=== PATIENT | female | born 1950 | race Caucasian/White ===

== ENCOUNTER → 2019-04-13 | Day surgery (SDC) | payer OTHER ==
--- NOTE | 2019-04-08 17:32 | H ---
[facility] [place] [address] HISTORY AND PHYSICAL Name: PB CAMILO Room #: PRE [facility] M.R.#: [id number] Admission: Attend Phys: Johnathan Lynch, Discharge: Date of : 54 Report #: [id number] THIS REPORT FOR: //name// CC: Tara Lynch DATE OF SERVICE: 04/13/2019 DATE OF SCHEDULED SURGERY: 04/13/2019 REASON FOR SURGERY: Postmenopausal bleeding. HISTORY OF PRESENT ILLNESS: This is a 68-year-old who had presented with some recent postmenopausal bleeding. Her previous Pap smear was on 01/31/2019 that was normal. She has had a previous hysteroscopy and D and C and removal of the cervical polyp in 06/2014 and the pathology was benign. She had a previous oophorectomy. She did have a pelvic ultrasound on 02/10/2019. Her uterus measured 5.7 cm in length. Endometrium measured 16.9 mm. Because of her bleeding and obesity, weight of 330 pounds, she did discuss endometrial evaluation, particularly in view of an endometrium measuring almost 17 mm. After discussing options, she has elected to proceed with a hysteroscopy and D and C. The procedure, risks, recovery and alternative options have been discussed with the patient. PAST HISTORY: She had one vaginal delivery as well as 1 . She had a previous oophorectomy as well as a tubal ligation. She does have a history of hypertension and asthma. Otherwise, she has done well. FAMILY HISTORY: Positive for diabetes, hypertension, heart disease and colon cancer. SOCIAL HISTORY: She is and never smoked. ALLERGIES: ERYTHROMYCIN AND CEPHALOSPORINS. CURRENT MEDICATIONS: Advair, hydrochlorothiazide, lisinopril, propranolol. REVIEW OF SYSTEMS: Positive for the postmenopausal bleeding. She denies any fever or chills. No nausea, vomiting. No diarrhea, no dysuria. No chest pain or shortness of breath. PHYSICAL EXAMINATION: VITAL SIGNS: She is 5 feet 1-1/2 with a weight 331 with a BMI of 61, blood pressure 130/82. LUNGS: Clear. HEART: She had a regular rate and rhythm. [facility] [address] [place] [address] HISTORY AND PHYSICAL Name: PB CAMILO Room #: PRE [facility] M.R.#: [id number] Admission: Attend Phys: Johnathan Lynch, Discharge: Date of : 54 Report #: [id number] NECK: Revealed no thyroid nodules or supraclavicular adenopathy. BREASTS: Her breasts were normal bilaterally. ABDOMEN: Soft, nontender. No masses, rebound or guarding. PELVIC: There were no apparent vulvar, vaginal, cervical lesions. Again, a recent Pap was normal. Bimanual is without masses or pain. IMPRESSION: Postmenopausal bleeding with an endometrium of almost 17 mm on ultrasound. After discussing options, the patient elected to proceed with a hysteroscopy and D and C. The procedure, risks and recovery as well as alternative options have been discussed with the patient, <ELECTRONICALLY SIGNED> By: Johnathan Lynch MD 04/08/19 1732 1539 1753 Johnathan Lynch MD /nt
[~2019-04-13] VITALS: Ht 154.9 cm; Wt 149.7 kg
[~2019-04-13] MED LIST: ADVAIR 250-501 EACH INH; BENICAR40 MG PO; CALCIUM 500+D1 EAC2 PO; ERGOCALCIF50000 UNIT PO; FLEXERIL PO; GLUCOSAMINE &1 EAC1 PO; HYDROCHLOROTH12.5 M1 PO; MOBIC15 MG PO; MSM1000 M1 PO; MULTIVITAMINS PO; PRINIVIL20 MG PO; PROPRANOLOL 4040 M1 PO; SERTRALINE HCL50 MG PO; ULTRACET TABLET1 TAB PO; VENTOLIN HFA 1818 GM INH; VITAMIN E400 UNIT PO; ZANAFLEX4 MG PO
[2019-04-13 07:22] LABS: HEMATOCRIT 42.8 % (37.0-47.0)
[2019-04-13 09:51] VITALS: BP 105/86
--- NOTE | 2019-04-13 12:36 | O ---
[facility] [place] [address] OPERATIVE REPORT Name: PB CAMILO Room #: REG [facility].#: [id number] Admission: 04/13/19 Attend Phys: Johnathan Lynch, Discharge: Date of : 54 Report #: [id number] THIS REPORT FOR: //name// CC: Tara Lynch DATE OF SERVICE: 04/13/2019 PREOPERATIVE DIAGNOSIS: Postmenopausal bleeding with endometrial thickening of over 17 mm on pelvic ultrasound. POSTOPERATIVE DIAGNOSIS: Postmenopausal bleeding with endometrial thickening of over 17 mm on pelvic ultrasound with final pathology pending. PROCEDURE DONE: Hysteroscopy, D and C. SURGEON: Johnathan Lynch MD ANESTHESIA: General. COMPLICATIONS: None. BLOOD LOSS: Essentially none. DESCRIPTION OF OPERATION: The patient was taken to the operating room, given adequate anesthesia. She was placed in the stirrups. She was prepped. Her bladder was drained and she was draped. A timeout had been performed. At this point, the patient had been placed in stirrups and then positioned for procedure. The patient was noted to have a rectocele, where a long weighted speculum was placed in the posterior vagina and the anterior bladder and vagina retracted with a retractor. The cervix was quite high in the vaginal vault that was identified and grasped with an Allis clamp. Initially, I was able to do an endocervical curettage. The cervix was gently dilated and the uterus sounded to 7 cm. Cervical os dilated enough to allow a diagnostic hysteroscope to be placed. The hysteroscope was inserted and endometrial cavity visualized. She was found to have endometrial thickening, but no masses identified. The hysteroscope was removed and endometrial curettings were performed. All tissue was sent to pathology. At this point, the Allis clamp was removed from the cervix. There was some slight spotting from the cervix and was treated with silver nitrate and was hemostatic. At this point, the weighted speculum removed, no bleeding. This patient tolerated the procedure well. [address] [address] OPERATIVE REPORT Name: PB CAMILO Room #: REG [facility].#: [id number] Admission: 04/13/19 Attend Phys: Johnathan Lynch, Discharge: Date of : 54 Report #: [id number] instrument count were correct. She was placed back into the supine position and taken to the recovery room in stable condition. <ELECTRONICALLY SIGNED> By: Johnathan Lynch MD 04/13/19 1236 0923 0940 Johnathan Lynch MD /nt
--- NOTE | 2019-04-13 13:24 | EKG ---
[address] [address] ELECTROCARDIOGRAM REPORT Name: PB CAMILO Room #: REG [facility]#: [id number] Admission: 04/13/19 Attend Phys: Johnathan Lynch, Discharge: Date of : 54 Report #: [id number] THIS REPORT FOR: //name// [facility] Test Date: 2019-04-13 Test Time: 07:25:25 Pat Name: PB CAMILO Department: Room: Gender: F Maintenance Welder: LUCERO : 1950 Requested By: Johnathan Lynch Order Number: [id number] MD: Joey Marx Measurements Intervals [place] Rate: 109 P: 45 CT: 147 QRS: 36 QRSD: 86 T: 17 QT: 324 QTc: 437 Interpretive Statements Sinus tachycardia Small inferior Q waves Compared to ECG 12/23/2011 07:20:55 No significant change was found Electronically Signed On 04-13-2019 13:24:06 CDT by Joey Marx [email or web address] <ELECTRONICALLY SIGNED> By: Joey Marx MD, [facility] 04/13/19 1324 0725 4 Joey Marx MD, FACC /EPI
--- NOTE | 2019-04-14 15:08 | PATH ---
[facility] [address] [place] [address] PATHOLOGY RPT PROCEDURE Name: PB CAMILO Room #: [facility] [place].[facility].#: [id number] Admission: 04/13/19 Date of : 54 Discharge: Report #: [id number] Path Case #: [id number] [facility] Accession Number: [id number] . 01 Material submitted: . PART A: endocervix - ENDOCERVICAL CURETTINGS PART B: endometrium - ENDOMETRIAL CURETTINGS . 01 Clinical history: . Postmenopausal bleeding, endometrial thickening . 02 Diagnosis: A. Endocervix, curettage: - Fragments of endocervical mucosa with focal squamous metaplasia. - Scant fragments of unremarkable ectocervical mucosa. . B. Endometrium, curettage: - Fragments of proliferative endometrium with tubal metaplasia and areas consistent with portions of endometrial polyp. (MECHELLE:jones; 04/14/2019) QTP/04/14/2019 . 02 Electronically signed: . Cj Yanes MD, Pathologist NPI- [id number] . 01 Gross description: . A. Received in formalin labeled "Vinayak, Pb, endocervical curettings" is hemorrhagic mucoid material measuring 2.0 x 1.1 x 0.3 cm which is entirely submitted in A1. . B. Received in formalin labeled "Helland, Pb, endometrial curettings" is soft, mucoid, and hemorrhagic pardo-brown tissue measuring 2.6 x 1.7 x 0.4 cm which is entirely submitted in B1. (SDY; 04/13/2019) SYU/SYU . 02 Pathologist provided ICD-10: N84.0, N85.9 . 02 CPT . 202549, 149337 Specimen Comment: A courtesy copy of this report has been sent to Specimen Comment: [phone], . Specimen Comment: Report sent to / DR CARR Performed at: [address] [place] [address] PATHOLOGY RPT PROCEDURE Name: PB CAMILO Room #: [facility].#: [id number] Admission: 04/13/19 Date of : 54 Discharge: Report #: [id number] Path Case #: [id number] [facility] [address], [place] [id number] MD Donis Molina MD Phone: [phone] Performed at: [address] [id number] MD Shelley Beaver MD Phone: [phone]
== END | disposition home or self-care (01) ==
LOC: OR 06:36
PROVIDERS: Obstetrics & Gynecology
DX: N84.0 Polyp of corpus uteri (principal); N95.0 Postmenopausal bleeding; I10 Essential (primary) hypertension; J45.909 Unspecified asthma, uncomplicated; Z98.890 Other specified postprocedural states; Z79.899 Other long term (current) drug therapy; Z98.51 Tubal ligation status; Z83.3 Family history of diabetes mellitus; Z82.49 Family history of ischemic heart disease and other diseases of the circulatory system; Z80.0 Family history of malignant neoplasm of digestive organs; Z88.8 Allergy status to other drugs, medicaments and biological substances; M19.90 Unspecified osteoarthritis, unspecified site
CPT/HCPCS: 50010; 50101; 54172; 54173; 70005